=== PATIENT | male | born 1990 | race Caucasian/White ===

== ENCOUNTER 2019-11-09 17:41 | Inpatient (IN) | payer BC, MEDICARE ==
[~2019-11-09] VITALS: Ht 190.5 cm; Wt 90.9 kg
[2019-11-09 18:59] LABS: BASOPHILS # (AUTO) 0.1 X10'3 (0-0.2); BASOPHILS % (AUTO) 0.7 % (0-1); EOSINOPHILS # (AUTO) 0.4 X10'3 (0-0.9); EOSINOPHILS % (AUTO) 4.4 % (0-6); HEMATOCRIT 32.5 % (42.0-52.0); HEMOGLOBIN 10.3 g/dl (14.0-17.9); LYMPHOCYTES # (AUTO) 1.8 X10'3 (1.1-4.8); LYMPHOCYTES % (AUTO) 21.7 % (21-51); MEAN CORPUSCULAR HEMOGLOBIN 22.9 PG (27.0-31.0); MEAN CORPUSCULAR HGB CONC 31.7 g/dL (33.0-36.5); MEAN CORPUSCULAR VOLUME 72.3 FL (78-98); MEAN PLATELET VOLUME 6.3 FL (7.4-10.4); MONOCYTES # (AUTO) 1.2 X10'3 (0-0.9); MONOCYTES % (AUTO) 14.1 % (2-12); NEUTROPHILS # (AUTO) 4.9 X10'3 (1.8-7.7); NEUTROPHILS % (AUTO) 59.1 % (42-75); PLATELET COUNT 545 X10'3 (140-440); RED BLOOD COUNT 4.49 X10'6 (4.70-6.10); RED CELL DISTRIBUTION WIDTH 18.1 % (11.5-14.5); WHITE BLOOD COUNT 8.3 X10'3 (4.5-11.0)
[2019-11-09 19:15] LABS: ALANINE AMINOTRANSFERASE 141 U/L (12-78); ALBUMIN 4.1 G/DL (3.4-5.0); ALBUMIN/GLOBULIN RATIO 0.8 (1.1-1.5); ALKALINE PHOSPHATASE 869 IU/L (46-116); ANION GAP 6 (8-16); ASPARTATE AMINO TRANSFERASE 114 U/L (10-37); BILIRUBIN,TOTAL 1.3 MG/DL (0.1-1.0); BLOOD UREA NITROGEN 8 MG/DL (7-18); BUN/CREATININE RATIO 11.3 (5.4-32.0); CALCIUM 9.2 MG/DL (8.5-10.1); CHLORIDE 86 MMOL/L (99-107); CREATININE 0.71 MG/DL (0.60-1.10); GLUCOSE 95 MG/DL (70-104); LIPASE 421 U/L (73-393); POTASSIUM 4.2 MMOL/L (3.5-5.1); TOTAL CARBON DIOXIDE 27.6 MMOL/L (24-32); TOTAL PROTEIN 9.2 G/DL (6.4-8.2); eGFR > 90 ML/MIN
[2019-11-09 19:17] LABS: SODIUM 120 MMOL/L (135-145)
[2019-11-09] MEDS ORDERED: normal saline 1000ML IV soln IVB ONE (20:10)
[2019-11-09] MEDS ORDERED: HYDROmorphone inj. 0.5 MG/0.5 ML DISP.SYRIN IV ONE (20:30)
[2019-11-09] MEDS ORDERED: DIPH25CA83 PO (20:42)
[2019-11-09] MEDS ORDERED: URSO300C8 PO (20:42)
[2019-11-09] MEDS ORDERED: BUDE3CAP8 PO (20:42)
[2019-11-09] MEDS ORDERED: HYDROcodone/acetaminophen 10/325mg tab PO PRN (23:15)
[2019-11-09] MEDS ORDERED: HYDROcodone/acetaminophen 5mg/325mg tablet PO PRN (23:15)
[2019-11-09] MEDS ORDERED: HYDROmorphone inj. 0.5 MG/0.5 ML DISP.SYRIN IV PRN (23:15)
[2019-11-09] MEDS ORDERED: acetaminophen 325mg tablet PO PRN ×2 (23:15)
[2019-11-09] MEDS ORDERED: mag hydrox/Alum hydrox/simeth 30ml oral suspension PO PRN (23:15)
[2019-11-09] MEDS ORDERED: magnesium hydroxide 30ml (MOM) UD suspension PO PRN (23:15)
--- NOTE | 2019-11-09 23:55 | NUR ---
Received report from load out workerMARVIN Melendez. Patient to follow shortly.
--- NOTE | 2019-11-10 00:20 | NUR ---
Patient arrived to floor from ER via W/C. Patient VS taken and 2 RN skin check completed and MRSA swab collected.
[2019-11-10] MEDS: ondansetron/PF 4mg/2ml inj IV PRN ×3 (00:25→23:36)
[2019-11-10 00:30] VITALS: BP 113/70
[2019-11-10] MEDS: normal saline 1000ml 1,000 ML IV SCH ×4 (00:32→23:29)
[2019-11-10] MEDS: hydrocortisone sod succ/PF 100mg/2ml inj. IV SCH ×4 (01:20→20:42)
--- NOTE | 2019-11-10 05:49 | NUR ---
C-diff sample collected this Am and taken to lab. Stool sample was diarrhea with sm pieces in it - green brown rosa in color.
[2019-11-10 06:00] LABS: BASOPHILS % (AUTO) 0.3 % (0-1); EOSINOPHILS # (AUTO) 0.1 X10'3 (0-0.9); HEMATOCRIT 30.6 % (42.0-52.0); HEMOGLOBIN 9.8 g/dl (14.0-17.9); LYMPHOCYTES # (AUTO) 0.7 X10'3 (1.1-4.8); LYMPHOCYTES % (AUTO) 6.5 % (21-51); MEAN CORPUSCULAR HEMOGLOBIN 23.3 PG (27.0-31.0); MEAN CORPUSCULAR HGB CONC 31.9 g/dL (33.0-36.5); MEAN PLATELET VOLUME 6.5 FL (7.4-10.4); MONOCYTES # (AUTO) 0.3 X10'3 (0-0.9); MONOCYTES % (AUTO) 2.7 % (2-12); NEUTROPHILS # (AUTO) 9.2 X10'3 (1.8-7.7); NEUTROPHILS % (AUTO) 89.5 % (42-75); PLATELET COUNT 527 X10'3 (140-440); RED BLOOD COUNT 4.19 X10'6 (4.70-6.10); WHITE BLOOD COUNT 10.2 X10'3 (4.5-11.0)
[2019-11-10 06:10] LABS: ALBUMIN 3.7 G/DL (3.4-5.0); ANION GAP 9 (8-16); BLOOD UREA NITROGEN 8 MG/DL (7-18); BUN/CREATININE RATIO 13.1 (5.4-32.0); CALCIUM 8.8 MG/DL (8.5-10.1); CHLORIDE 87 MMOL/L (99-107); CREATININE 0.61 MG/DL (0.60-1.10); GLUCOSE 108 MG/DL (70-104); POTASSIUM 4.1 MMOL/L (3.5-5.1); SODIUM 121 MMOL/L (135-145); TOTAL CARBON DIOXIDE 25.4 MMOL/L (24-32); eGFR > 90 ML/MIN
--- NOTE | 2019-11-10 06:50 | NUR ---
Patient in room [facility] 351. I have received report from Lee Ann Hermosillo RN and had the opportunity to ask questions and assume patient care.
--- NOTE | 2019-11-10 06:52 | NUR ---
Problems reprioritized. Patient report given, questions answered & plan of care reviewed with Patricia WONG.
--- NOTE | 2019-11-10 07:53 | NUR ---
Pt's Evette picked up patients home meds, Urosodial and Budesonide.
[2019-11-10 08:11] VITALS: BP 100/64
[2019-11-10] MEDS: Ursodiol 300mg capsule PO SCH ×2 (08:13→20:42)
[2019-11-10] MEDS: BUDESONIDE 3 MG PO SCH ×3 (08:13→20:42)
[2019-11-10 10:08] LABS: C DIFF ANTIGEN NEGATIVE (NEGATIVE); C DIFF SPECIMEN=DIARRHEA? ACCEPTABLE; C DIFFICILE TOXINS A&B NEGATIVE (Neg)
[2019-11-10 11:00] VITALS: BP 101/64
[2019-11-10] MEDS ORDERED: ESZO1TAB11 PO (14:28)
--- NOTE | 2019-11-10 14:57 | NUR ---
Budesonide 1300 dose - waiting for Pharmacy to deliver med to floor per phone call.
--- NOTE | 2019-11-10 16:01 | NUR ---
PAGER ID: [phone] MESSAGE: re: [phone], Demetrius Parisi Just making sure you know pt's Na+ is 121 today, has NS running at 100 ml/hr and is drinking a lot of fluids. Any changes/orders? Thank you, Patricia
[2019-11-10] MEDS: metroNIDAZOLE-Flagyl 500mg/NS 100 ML IV SCH ×2 (16:37→23:30)
--- NOTE | 2019-11-10 18:30 | NUR ---
Patient in room [facility] 351. I have received report from Patricia WONG and had the opportunity to ask questions and assume patient care.
--- NOTE | 2019-11-10 18:30 | NUR ---
Problems reprioritized. Patient report given, questions answered & plan of care reviewed with Lee Ann WONG.
[2019-11-10 20:06] VITALS: BP 112/65
[2019-11-10] MEDS: ciprofloxacin lact 400MG/200ML 200 ML IV SCH (20:42)
[2019-11-10] MEDS: diphenhydrAMINE 25mg capsule PO SCH (20:44)
[2019-11-11] VITALS: BP 106/61
[2019-11-11] MEDS: hydrocortisone sod succ/PF 100mg/2ml inj. IV SCH ×4 (02:11→20:29)
[2019-11-11 05:56] LABS: ALBUMIN 3.2 G/DL (3.4-5.0); ANION GAP 8 (8-16); BLOOD UREA NITROGEN 7 MG/DL (7-18); BUN/CREATININE RATIO 12.1 (5.4-32.0); CALCIUM 8.9 MG/DL (8.5-10.1); CHLORIDE 98 MMOL/L (99-107); CREATININE 0.58 MG/DL (0.60-1.10); GLUCOSE 125 MG/DL (70-104); POTASSIUM 4.9 MMOL/L (3.5-5.1); SODIUM 129 MMOL/L (135-145); TOTAL CARBON DIOXIDE 23.3 MMOL/L (24-32); eGFR > 90 ML/MIN
[2019-11-11 06:05] LABS: BASOPHILS % (AUTO) 0.1 % (0-1); EOSINOPHILS % (AUTO) 0 % (0-6); HEMATOCRIT 28.6 % (42.0-52.0); LYMPHOCYTES # (AUTO) 0.4 X10'3 (1.1-4.8); LYMPHOCYTES % (AUTO) 2.5 % (21-51); MEAN CORPUSCULAR HEMOGLOBIN 23.2 PG (27.0-31.0); MEAN CORPUSCULAR HGB CONC 31.6 g/dL (33.0-36.5); MEAN CORPUSCULAR VOLUME 73.5 FL (78-98); MEAN PLATELET VOLUME 6.8 FL (7.4-10.4); MONOCYTES # (AUTO) 0.3 X10'3 (0-0.9); MONOCYTES % (AUTO) 2.2 % (2-12); NEUTROPHILS # (AUTO) 14.5 X10'3 (1.8-7.7); NEUTROPHILS % (AUTO) 95.2 % (42-75); PLATELET COUNT 473 X10'3 (140-440); RED BLOOD COUNT 3.89 X10'6 (4.70-6.10); RED CELL DISTRIBUTION WIDTH 18.1 % (11.5-14.5); WHITE BLOOD COUNT 15.2 X10'3 (4.5-11.0)
--- NOTE | 2019-11-11 06:49 | NUR ---
Patient in room [facility] 360. I have received report from Lee Ann WONG and had the opportunity to ask questions and assume patient care.
--- NOTE | 2019-11-11 06:51 | NUR ---
Problems reprioritized. Patient report given, questions answered & plan of care reviewed with Dev WONG.
[2019-11-11 08:08] VITALS: BP 106/54
[2019-11-11] MEDS: Ursodiol 300mg capsule PO SCH ×2 (08:49→20:28)
[2019-11-11] MEDS: BUDESONIDE 3 MG PO SCH ×3 (08:49→20:30)
[2019-11-11] MEDS: metroNIDAZOLE-Flagyl 500mg/NS 100 ML IV SCH ×2 (08:49→16:11)
[2019-11-11] MEDS: ciprofloxacin lact 400MG/200ML 200 ML IV SCH ×2 (09:59→20:29)
[2019-11-11 11:00] VITALS: BP 100/55
[2019-11-11] MEDS: normal saline 1000ml 1,000 ML IV SCH (12:58)
--- NOTE | 2019-11-11 14:10 | NUR ---
Paged Dr. Gay PAGER ID: [phone] MESSAGE: Surgical Flr Dev WONG ext [phone]. RE: Demetrius Parisi. Patient requesting Lunesta 2 mg PO QHS PRN order for insomnia
--- NOTE | 2019-11-11 14:42 | NUR ---
PAGER ID: [phone] MESSAGE: Surgical Ranjit Méndez RN ext [phone]. RE: Demetrius Parisi. Our pharmacy does not have Lunesta available so we are substituting it to Ambien 5mg as per pharmacist recommendation and patient agreed to it.
[2019-11-11] MEDS ORDERED: zolpidem 5mg tablet PO PRN (14:45)
--- NOTE | 2019-11-11 18:09 | NUR ---
Problems reprioritized. Patient report given, questions answered & plan of care reviewed with Renuka WONG.
[2019-11-11 20:00] VITALS: BP 115/66
[2019-11-11] MEDS: diphenhydrAMINE 25mg capsule PO SCH (20:28)
[2019-11-12] VITALS: BP 116/69
[2019-11-12] MEDS: metroNIDAZOLE-Flagyl 500mg/NS 100 ML IV SCH ×2 (00:36→08:44)
[2019-11-12] MEDS: normal saline 1000ml 1,000 ML IV SCH (00:38)
[2019-11-12] MEDS: hydrocortisone sod succ/PF 100mg/2ml inj. IV SCH ×2 (02:29→08:44)
[2019-11-12 06:02] LABS: ANION GAP 7 (8-16); BLOOD UREA NITROGEN 8 MG/DL (7-18); BUN/CREATININE RATIO 12.5 (5.4-32.0); CALCIUM 8.5 MG/DL (8.5-10.1); CHLORIDE 105 MMOL/L (99-107); CREATININE 0.64 MG/DL (0.60-1.10); GLUCOSE 155 MG/DL (70-104); POTASSIUM 4.1 MMOL/L (3.5-5.1); SODIUM 135 MMOL/L (135-145); TOTAL CARBON DIOXIDE 23.5 MMOL/L (24-32); eGFR > 90 ML/MIN
--- NOTE | 2019-11-12 06:02 | NUR ---
Problems reprioritized. Patient report given, questions answered & plan of care reviewed with Anette WONG.
[2019-11-12 06:24] LABS: BASOPHILS % (AUTO) 0.1 % (0-1); EOSINOPHILS % (AUTO) 0 % (0-6); HEMATOCRIT 27.6 % (42.0-52.0); HEMOGLOBIN 8.6 g/dl (14.0-17.9); LYMPHOCYTES # (AUTO) 0.4 X10'3 (1.1-4.8); LYMPHOCYTES % (AUTO) 2.4 % (21-51); MEAN CORPUSCULAR HEMOGLOBIN 23.3 PG (27.0-31.0); MEAN CORPUSCULAR HGB CONC 31.2 g/dL (33.0-36.5); MEAN CORPUSCULAR VOLUME 74.5 FL (78-98); MONOCYTES # (AUTO) 0.5 X10'3 (0-0.9); MONOCYTES % (AUTO) 3.1 % (2-12); NEUTROPHILS # (AUTO) 14.3 X10'3 (1.8-7.7); NEUTROPHILS % (AUTO) 94.4 % (42-75); PLATELET COUNT 426 X10'3 (140-440); RED CELL DISTRIBUTION WIDTH 18.1 % (11.5-14.5); WHITE BLOOD COUNT 15.2 X10'3 (4.5-11.0)
--- NOTE | 2019-11-12 06:29 | NUR ---
Patient in room [facility] 360. I have received report from Renuka WONG and had the opportunity to ask questions and assume patient care.
[2019-11-12 07:00] VITALS: BP 91/49
[2019-11-12 07:05] VITALS: BP 100/41
[2019-11-12] MEDS: Ursodiol 300mg capsule PO SCH (08:44)
[2019-11-12] MEDS: BUDESONIDE 3 MG PO SCH (08:44)
[2019-11-12] MEDS: ciprofloxacin lact 400MG/200ML 200 ML IV SCH (09:56)
[2019-11-12] MEDS ORDERED: METR-159 PO (10:54)
[2019-11-12] MEDS ORDERED: CIPR-230 PO (10:54)
--- NOTE | 2019-11-12 11:25 | NUR ---
Discharged patient home. Discharge instructions given to patient, patient verbalized understanding of all instructions made. Peripheral IV catheter removed, tip intact. Instructed patient to ensure he has all his belongings with him before he leave. New prescriptions e-sent to the pharmacy of choice. [facility], insisted he will walk.
== END 2019-11-12 11:25 | disposition home or self-care (01) | DRG 386 ==
LOC: ER 17:41 → ED HOLD 23:13 → SUR 3N 11-10 00:20
PROVIDERS: ADMIT Internal Medicine; ATTEND Family Medicine
DX: K51.90 Ulcerative colitis, unspecified, without complications (principal); E87.1 Hypo-osmolality and hyponatremia; E86.0 Dehydration; Z90.49 Acquired absence of other specified parts of digestive tract; Z80.0 Family history of malignant neoplasm of digestive organs; T38.0X5A Adverse effect of glucocorticoids and synthetic analogues, initial encounter; K74.3 Primary biliary cirrhosis; Z88.0 Allergy status to penicillin; Z88.8 Allergy status to other drugs, medicaments and biological substances
CPT/HCPCS: 36415; 74176; 80048; 80053; 83690; 85025; 87045; 87046; 87081; 87324; 87449; 96361; 96374; 99285; G0378; J0744; J1170; J1720; J2405; J3490; J7030; Q0163